=== PATIENT | female | born 1975 | race Caucasian/White ===

== ENCOUNTER 2025-02-25 07:37 | Inpatient (IN) | payer OTHER ==
[2025-02-25] VITALS (17 sets, daily range): BP systolic 104–146; BP diastolic 56–101; PULSE 91–101; RESP 14–19; TEMP 97.5–98.1; O2SAT 90–100
[~2025-02-25] VITALS: Ht 167.6 cm; Wt 124.7 kg
[2025-02-25] MEDS ORDERED: nitroGLYCERIN-Tridil 50MG/D5W 250 ML IV SCH (07:45)
--- NOTE | 2025-02-25 07:56 | ELECTROCARDIOGRAPH REPORT ---
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
[2025-02-25] MEDS: nitroGLYCERIN-Tridil 50MG/D5W 250 ML IV SCH (08:05)
[2025-02-25] MEDS: heparin 25,000 UNIT/250ml bag 250 ML IV PRN (08:08)
--- NOTE | 2025-02-25 08:19 | Physician Documentation ---
History of Present Illness ~ Chief Complaint: Chest Pain Stated Complaint: NSTEMI Time Seen by MD: 08:09 Source: patient (2), RN/MD (Transfer paperwork), EMS HPI Patient was transferred to our facility from [facility] for evaluation and management of what was deemed to be an NSTEMI at that facility. She arrives with a heparin and nitroglycerin drip. Patient reports that since Easter time she has had some pain in the low chest and upper epigastrium, which initially only bothers her when she ate, but over the last week has been rather constant. The pain has become significant enough that she has difficulty breath ing, but reports that the pain is still worse if she attempts to take any p.o.. The pain is described as being substernal and heavy/fall/pressure, moderate in intensity and radiating to her left shoulder and back. She denies any nausea, vomiting, or diaphoresis. She carries a recent diagnosis of CHF and has been out of Lasix. Patient was seen at [facility] where she was given aspirin, Pepcid, Lasix, heparin, DuoNeb, Solu-Medrol, and a nitroglycerin drip. She was found to have pulmonary edema on chest x-ray, EKG without acute ST changes. CT abdomen and pelvis was performed showing moderate right effusion and bibasilar atelectasis, no acute intra-abdominal pathology. She was given a GI cocktail which did not help her epigastric pain, but she was feeling much improved after nitroglycerin. Patient was transferred here for further care as they have no cardiology cap ability at that facility. Labs from outside facility: WBC 6.9, hemoglobin 13.5, platelets 245 Chemistry panel showing chloride of 97, CO2 33, glucose 324, albumin 2.7, otherwise normal. Lipase normal at 17. Troponin 253 protime 14.6 proBNP 1262. Medication Reconciliation Allergies: Coded Allergies: No Known Allergies (Unverified , 02/25/25) Past Medical History Past Medical History: Congestive Heart Failure, COPD, Diabetes Smoking Status: Current every day smoker (None for the last week) Alcohol Use: None Drug Use: none Review of Systems All Other Systems at this time: Reviewed and Negative Physical Exam Vital Signs: Temperature: 97.7, Source: Oral, Heart Rate: 101, Respiratory Rate: 20, BP: 170/120, Pulse Oximetry: 94, Weight: 124.700 Oxygen Flow Rate: 4.0 Physical Exam General: Pt is awake, alert, oriented x4 in no acute distress and well appearing. Head: Normocephalic and atraumatic. Eyes: Conjunctiva normal. ENT: Mucous membranes moist. Neck: Supple. Chest: Clear to auscultation bilaterally, without rales, rhonchi, or wheezes. There is no accessory muscle use or retractions. Cardiac: Regular rate and rhythm without murmurs, gallops or rubs. Palpation of the chest wall reproduces her pain Abd: Soft, nondistended, mildly tender in the epigastrium: with normoactive bowel sounds. No guarding or rebound. Extremities: Within normal limits without cyanosis, clubbing, or edema. Skin: [place], warm and dry with no significant rash appreciated. Neuro: Cranial nerves II-XII grossly intact. The gait is not tested Progress Results/Orders Results/Orders Orders - TYRELL LICONA MD Cbc/Diff (02/26/25 03:00) Cbc/Diff (02/27/25 03:00) Cbc/Diff (02/28/25 03:00) Cbc/Diff (03/01/25 03:00) Cbc/Diff (03/02/25 03:00) Nitroglycerin-Tridil 50mg/D5w (Tridil (N (02/25/25 07:54) Page Hospitalist (02/25/25 08:23) Fill Out Med Reconciliation (02/25/25 08:23) Completed Orders - TYRELL LICONA MD Nitroglycerin-Tridil 50mg/D5w (Tridil (N (02/25/25 07:45) Heparin Drip Acs*h-To-Dose* (Heparin D (02/25/25 07:45) Pt Inr (02/25/25 07:53) PTT (02/25/25 07:53) Cbc/Diff (02/25/25 07:53) No Initial Heparin Drip Bolus (No Initia (02/25/25 07:55) Electrocardiogram (02/25/25 ) Cardiac Ptt (02/25/25 07:55) Troponin (Single) (02/25/25 07:55) Message To Nursing (02/25/25 08:05) Medications Received in ER Medications (Trade) Dose Ordered Sig/Nadya Route PRN Reason Start Time Stop Time Status Last Admin Dose Admin Heparin Sodium/ Dextrose 250 ml @ 12 mls/hr [id number] PRN IV TO MAINTAIN PTT WITHIN RANGE 02/25/25 07:55 02/25/25 08:08 10 MLS/HR (heparin 10,000 unit/ml 1ml inj) bolus for correct... PRN PRN IV per protocol-CARDIAC 02/25/25 07:55 02/25/25 09:14 4,000 UNITS Nitroglycerin/ Dextrose 250 ml @ 3 mls/hr Q48H IV 02/25/25 07:54 02/25/25 08:05 3 MLS/HR Vital Signs 02/25/25 02/25/25 02/25/25 07:41 08:05 08:08 Temp 97.7 Pulse 101 Resp 20 24 B/P (MAP) 168/111 170/120 Pulse Ox 94 O2 Flow Rate 4.0 Laboratory Tests Test 02/25/25 08:17 White Blood Count 6.0 Red Blood Count 5.46 Hemoglobin 13.8 Hematocrit 42.7 Mean Corpuscular Volume 78.1 Mean Corpuscular Hemoglobin 25.2 L Mean Corpuscular Hemoglobin Concent 32.3 L Red Cell Distribution Width 16.3 H Platelet Count 241 Mean Platelet Volume 7.9 Neutrophils (%) (Auto) 85.3 H Lymphocytes (%) (Auto) 11.5 L Monocytes (%) (Auto) 2.7 Eosinophils (%) (Auto) 0.2 Basophils (%) (Auto) 0.3 Neutrophils # (Auto) 5.1 Lymphocytes # (Auto) 0.7 L Monocytes # (Auto) 0.2 Eosinophils # (Auto) 0.0 Basophils # (Auto) 0.0 CBC Comment Prothrombin Time 12.1 H INR International Normalized Ratio 1.2 Activated Partial Thromboplast Time 34 H APTT (Heparin Protocol) 34 L Coagulation Comments Troponin I High Sensitivity 271 *H EKG/XRAY/CT/US/VASC/MRI EKG : Intepreting Monitor?: No EKG Rate: 99 EKG: abnormal Q waves (Anterior leads) EKG Blocks: none Consults/PCP Consults/PCP : Time Call Requested: 08:23 Consult Reason/Comments: Hospitalist Additional Comment [id number] Case d/w Dr. De La Paz, who will kindly admit patient for further workup Medical Decision Making Additional Information Patient presenting with chest pain and shortness of breath, history of CHF and COPD. Found to have elevated troponin in the setting of a nondiagnostic EKG, consistent with NSTEMI and transferred here for further care. Patient's EKG not showing any STEMI at this time. There may be some element of a GI component as well. Patient will be admitted to the hospitalist service for further evaluation and management. Departure Time of Disposition: 08:22 Admitted to Inpatient Unit: yes, to hospitalist Impression: Primary Impression: Chest pain Condition: Fair Referrals: NO PRIMARY CARE PROVIDER (PCP) Education Educated: Patient Educated regarding: diagnosis, treatment Signature Scribe Signature: Attestation: TYRELL LICONA MD Feb 25, 2025 08:19
[2025-02-25] MEDS: HEPARIN DRIP INITAL BOLUS --- DO NOT GIVE/ORDER MC ONE (08:20)
[2025-02-25] MEDS: HEPARIN DRIP-CARDIAC**PHARMACIST-TO-DOSE IV ONE (08:20)
[2025-02-25] MEDS: MESSAGE TO NURSING IV ONE ×2 (08:20→09:38)
[2025-02-25 08:30] LABS: MEAN PLATELET VOLUME 7.9 FL (7.4-10.4); RED CELL DISTRIBUTION WIDTH 16.3 % (11.5-14.5)
[2025-02-25 08:41] LABS: APTT 34 SECONDS (22-32); INR 1.2 INR
[2025-02-25] MEDS ORDERED: potassium Cl 40MEQ/1/2NS 520ml 520 ML IV PRN (08:45)
[2025-02-25] MEDS ORDERED: potassium Cl 20 mEq SR tablet PO PRN ×2 (08:45)
[2025-02-25] MEDS ORDERED: magnesium sulf-water 4G/100mL 100 ML IV PRN (08:45)
[2025-02-25] MEDS ORDERED: magnesium sulf-water 2g/50mL 50 ML IV PRN (08:45)
[2025-02-25] MEDS ORDERED: ondansetron/PF 4mg/2ml inj IV PRN (08:45)
[2025-02-25] MEDS ORDERED: magnesium Cl slow-release 64mg tablet PO PRN (08:45)
[2025-02-25] MEDS ORDERED: HYDROcodone/acetaminophen 5mg/325mg tablet PO PRN (08:45)
[2025-02-25] MEDS ORDERED: HYDROcodone/acetaminophen 10/325mg tab PO PRN (08:45)
[2025-02-25] MEDS ORDERED: heparin 25,000 UNIT/250ml bag 250 ML IV PRN (08:50)
[2025-02-25] MEDS ORDERED: heparin 10,000 units/1 ML INJ IV PRN (08:50)
[2025-02-25] MEDS: heparin 10,000 units/1 ML INJ IV PRN (09:14)
[2025-02-25] MEDS: pantoprazole 40mg Tablet.DR PO SCH (09:16)
[2025-02-25 10:15] LABS: URINE AMPHETAMINE SCREEN POSITIVE (Neg); URINE BARBITUATE SCREEN NEGATIVE (Neg); URINE BENZODIAZEPINES SCREEN NEGATIVE (Neg); URINE COCAINE SCREEN NEGATIVE (Neg); URINE METHADONE SCREEN NEGATIVE (Neg); URINE OPIATE SCREEN POSITIVE (Neg); URINE PHENCYCLIDINE SCREEN NEGATIVE (Neg)
[2025-02-25] MEDS ORDERED: metoprolol tartrate 1mg/ml inj IV PRN (10:40)
[2025-02-25] MEDS ORDERED: aminophylline 250mg/10ml inj. IV PRN (10:40)
[2025-02-25] MEDS ORDERED: POTA-188 PO (10:52)
[2025-02-25] MEDS ORDERED: EMPA10TA PO (10:52)
[2025-02-25] MEDS ORDERED: IPRA4AER INH (10:52)
[2025-02-25] MEDS ORDERED: FURO-150 PO (10:52)
[2025-02-25] MEDS ORDERED: ALB0.5UD IH (10:53)
[2025-02-25] MEDS: nicotine 14mg patch - 24hr TD SCH (11:30)
--- NOTE | 2025-02-25 11:56 | HISTORY AND PHYSICAL-Residence ---
History & Physical Providers to CC Resident Creating Document: DIEUDONNE ASHRAF RES ~ History of Present Illness Reason for Admit\Complaint: Chest pain History of Present Illness This is a 49-year-old female patient with morbid obesity, diabetes, CHF, COPD, admitted for NSTEMI. 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 The patient's pain is located in the precordial region without radiation, described as a pressure sensation, present even at rest and worsening with movement, associated with shortness of breath. Patient also reports symptoms of dyspepsia, without fever, nausea, vomiting or diarrhea. Patient was first seen at [facility] where she was given aspirin, Pepcid, Lasix, heparin, DuoNeb, Solu- Medrol, and a nitroglycerin drip. She was found to have pulmonary edema on chest x-ray, EKG without acute ST changes. CT abdomen and pelvis was performed showing moderate right effusion and bibasilar atelectasis, no acute intra- abdominal pathology. Labs from outside facility: WBC 6.9, hemoglobin 13.5, platelets 245 Chemistry panel showing chloride of 97, CO2 33, glucose 324, albumin 2.7, otherwise normal. Lipase normal at 17. Troponin 253 protime 14.6 proBNP 1262. Allergies: Coded Allergies: No Known Allergies (Unverified , 02/25/25) Home Medications Home Medications Active Reported Proventil Nebs* (Albuterol) 2.5 Mg/0.5 Ml Vial.neb 2.5 Mg IH Q6H PRN Combivent Respimat Inhal Seaman (Albuterol/Ipratropium) 20 Mcg-100 Mcg/Actuation Aer.w.adap 1 Puffs INH Q6H Klor-Con* (Potassium Chloride) 10 Meq Tablet.sa 4 Tab PO DAILY 30 Days Lasix (Furosemide) 20 Mg Tablet 1 Tab PO DAILY 30 Days Jardiance (Empagliflozin) 10 Mg Tablet 4 Tab PO DAILY 30 Days Past Medical History Past Medical History 1. Morbid obesity 2. Diabetes 3. Congestive heart failure 4. COPD Past Surgical History Surgical History Comment Hysterectomy 20 years ago Cholecystectomy 15 years ago Past Social History Smoking: Less than 1 pack/day (Patient is recently smoking 2 cigarettes a day, but used to smoke 1 pack a day for 35 years) Alcohol Use: Occasionally Drug Use: None, Marijuana (Patient relapsed yesterday but states being clear for 20 years), Methamphetamine (Patient relapsed yesterday but states being clear for 20 years) Lives with: Spouse Lives In: Home Occupation: employed, child, other ROS All Other Systems: Reviewed and Negative Constitutional: Reports: no symptoms reported Eyes: Reports: no symptoms reported ENT: Reports: no symptoms reported Respiratory: Reports: no symptoms reported, shortness of breath Cardiovascular: Reports: chest pain Gastrointestinal: Reports: abdominal pain Genitourinary: Reports: no symptoms reported Female Genitalia: Reports: no reported symptoms Neurological: Reports: no symptoms reported Musculoskeletal: Reports: no symptoms reported Integumentary: Reports: no symptoms reported Allergic/Immunologic: Reports: no symptoms reported Hematologic/Lymphatic: Reports: no symptoms reported Endocrine: Reports: no symptoms reported Psychiatric: Reports: no symptoms reported Unable to obtain: altered mental status Exam Vitals: Vital Signs Date Time Temp Pulse Resp B/P (MAP) Pulse Ox O2 Delivery O2 Flow Rate FiO2 02/25/25 10:23 98 02/25/25 10:05 98.0 15 146/95 (112) 95 Nasal Cannula 4.0 General: General: The patient is well developed, well nourished, nontoxic appearing and is in no acute distress Head: Normocephalic and atraumatic. Eyes: Conjunctiva normal. ENT: Mucous membranes moist. Neck: Supple. Chest: Clear to auscultation bilaterally, without rales, rhonchi, or wheezes. There is no accessory muscle use or retractions. Cardiac: Rate regular and rhythmic. S1, S2. No murmurs. Palpation of the chest wall was normal. Abd: Soft, mildly distended, mildly tender in the epigastrium: with normoactive bowel sounds. No guarding or rebound. Extremities: Within normal limits without cyanosis, clubbing, or edema. Skin: [place], warm and dry with no significant rash appreciated. Neuro: Cranial nerves II-XII grossly intact. The gait is not tested Diagnostic Data Last Recorded Lab Results: 02/25/25 0817 Diagnostic Data: Laboratory Tests Test 02/25/25 08:17 Prothrombin Time 12.1 SECONDS (9.0-12.0) H INR International Normalized Ratio 1.2 INR Activated Partial Thromboplast Time 34 SECONDS (22-32) H APTT (Heparin Protocol) 34 SECONDS (45-60) L Coagulation Comments Laboratory Tests Test 02/25/25 08:17 02/25/25 09:23 White Blood Count 6.0 X10'3 Red Blood Count 5.46 X10'6 Hemoglobin 13.8 g/dl Hematocrit 42.7 % Mean Corpuscular Volume 78.1 FL Mean Corpuscular Hemoglobin 25.2 PG Mean Corpuscular Hemoglobin Concent 32.3 g/dL Red Cell Distribution Width 16.3 % Platelet Count 241 X10'3 Mean Platelet Volume 7.9 FL Neutrophils (%) (Auto) 85.3 % Lymphocytes (%) (Auto) 11.5 % Monocytes (%) (Auto) 2.7 % Eosinophils (%) (Auto) 0.2 % Basophils (%) (Auto) 0.3 % Neutrophils # (Auto) 5.1 X10'3 Lymphocytes # (Auto) 0.7 X10'3 Monocytes # (Auto) 0.2 X10'3 Eosinophils # (Auto) 0.0 X10'3 Basophils # (Auto) 0.0 X10'3 CBC Comment Prothrombin Time 12.1 SECONDS INR International Normalized Ratio 1.2 INR Activated Partial Thromboplast Time 34 SECONDS APTT (Heparin Protocol) 34 SECONDS Coagulation Comments Troponin I High Sensitivity 271 ng/L Urine Opiates Screen Positive Urine Methadone Screen Negative Urine Fentanyl Screen Positive Urine Barbiturates Screen Negative Urine Phencyclidine Screen Negative Urine Amphetamines Screen Positive Urine Benzodiazepines Screen Negative Urine Cocaine Screen Negative Urine Cannabinoids Screen Drug Screen Comment Counseling Services Smoking & Tobacco Cessation: 3-10 Minutes (Patient was instructed to abstain from tobacco use) Advance Care Planning Advanced Care plannin - 30 Minutes Problems: (1) Chest pain Status: Acute Assessment & Plan: NSTEMI (KHANG 2 points; VENESSA 62 points) Cardiology consulted today We we will continue heparin and nitroglycerin drip We will start patient on GDMT Ordered Lexiscan We will monitor for worsening of the symptoms Dr Webb evaluated the patient today and he feels patient has chronic congestive heart failure, meth induced cardiomyopathy. Patient is started on GDMT today . Cardiology consult note reviewed and we will follow the recommendation. Lexiscan in a.m. we will keep patient NPO after midnight Congestive heart failure Patient was recently started on Jardiance and Lasix Ordered echocardiogram Diabetes Waiting A1c Management as per protocol Drug abuse Urine screen positive for fentanyl and amphetamine food services director and substance use navigator consulted Date of Service: Feb 25, 2025 Billing Provider: MAXIMO FISH MD Common Visit Codes: 43492-[id number] INP/OBS CARE (HIGH) Secondary Visit Codes: [id number] CARE PLAN 30 MINUTES Problem Qualifiers (1) Chest pain: Chest pain type: chest pain due to myocardial ischemia DIEUDONNE ASHRAF, RES Feb 25, 2025 11:56 MAXIMO FISH MD Feb 25, 2025 13:28
[2025-02-25] MEDS ORDERED: albuterol 2.5 MG/3 ML nebule NEB PRN (12:30)
--- NOTE | 2025-02-25 12:51 | CONSULTATION REPORT ---
Cardiac Consultation Report Providers to CC ~ Subjective Subjective Cardiology consultation: Abnormal cardiac enzymes shortness of breath. [age] old female who is medically nonadherent and chronically ill went to the emergency room at [facility] it was treated for heart failure and it troponin rise of 0.238 was noted. She was placed on heparin and nitroglycerin and transferred here. With each meal for the past month she has been having epigastric pain and left shoulder pain. She is out of breath with room activities. However no associated angina pectoris with activity. GI cocktail made her stomach swell according to her history and was not helpful. She feels improved with diuresis. He is afraid to eat because every time she eats it makes her stomach swell in her epigastrium hurts. Unfortunately she admits to using methamphetamines two days ago used to be a chronic user and she had run out of her furosemide. She is supposed to be taking Proventil Combivent Klor-Con Lasix and Jardiance as an outpatient. She has been waiting for a cardiology consult in [place]. She did have a CAT scan of the abdomen at [facility] that showed past hysterectomy and cholecystectomy and an enlarged liver. Pleural effusions were noted abdominal wall edema was noted. For the past month and a half she has been on oxygen p.r.n. use at home. Objective Vitals Vital Signs Date Time Temp Pulse Resp B/P (MAP) Pulse Ox O2 Delivery O2 Flow Rate FiO2 02/25/25 10:23 98 02/25/25 10:05 98.0 15 146/95 (112) 95 Nasal Cannula 4.0 Lab Results: 02/25/25 0817 Objective Carotid no bruit chest diminished breath sounds no wheeze no rales heart no murmur heard no S3 gallop no rub PMI not palpable abdomen obese. BMI is 44. Bilateral edema with chronic venous stasis skin changes palpable foot pulses. Asymptomatic pleasant cooperative. Coagulation Studies Laboratory Tests Test 02/25/25 08:17 Prothrombin Time 12.1 SECONDS (9.0-12.0) H INR International Normalized Ratio 1.2 INR Activated Partial Thromboplast Time 34 SECONDS (22-32) H APTT (Heparin Protocol) 34 SECONDS (45-60) L Coagulation Comments Other Results Electrocardiogram loss of R-wave progression V1 through V3 nonspecific ST-T changes normal sinus rhythm. Echocardiography; visual ejection fraction 30-35% right ventricular enlargement with right ventricular hypokinesis. Intermittent mild MR. Poor quality study. Echo cardiographic earth science laboratory technician over estimates ejection fraction. Problem\Assessment\Plan Additional Plan Impression: 1. Chronic congestive cardiomyopathy. Exacerbated by methamphetamine use. 2. Morbid obesity. 3. Patient does not have non ST elevated HI she has methamphetamine use chronic congestive heart failure with mild troponin rise. 4. Blood pressure not controlled initially 160/110. 5. Epigastric severe abdominal pain with radiation to her left shoulder post each meal. Abdominal pain relief by defecation defecation is of pellets. Cat scan of abdomen unremarkable except for hepatomegaly. Recommendation 1. Control blood pressure patient is started on Coreg lisinopril. Continue furosemide potassium add a potassium-sparing diuretic as needed. 2. Discontinue intravenous nitroglycerin when blood pressure relatively well controlled. Discontinue heparin at any time. 3. Lexiscan to evaluate for reversible ischemia. 4. Patient's main complaint is actually epigastric pain radiating into her left shoulder with each meal etiology indeterminate. Lipase normal in [facility] amylase ordered for here. MAC ADAMS MD Feb 25, 2025 12:50
[2025-02-25] MEDS: regadenoson 0.4mg/5ml syringe IV PRN (14:01)
--- NOTE | 2025-02-25 15:40 | RADIOLOGY REPORT ---
EXAM: NM NM CHRISTIAN SCAN History: NSTEMI Comparison Study: None TECHNIQUE: Resting myocardial perfusion imaging was performed approximately 30 minutes following the injection of 8.3 mCi of Tc-99m sestamibi. Peak pharmacologic stress, the patient was injected with 34 .14 mCi of Tc-99m sestamibi. Gated post stress images were acquired in the supine and prone positions approximately 30 minutes after stress and left ventricular ejection fraction (LVEF) was calculated. Findings: The overall quality of the study is adequate. The left ventricular cavity is noted to be enlarged. There is no evidence of abnormal lung activity. Additionally, the right ventricle appears normal. Myocardial perfusion images demonstrate large size, severe intensity perfusion defects in the mid to distal anterior and inferior jackson which are fixed. Gated imaging reveals global hypokinetic wall motion with a calculated decreased LVEF of 26 % with en d-diastolic volume of 181 mL at stress. Impression: 1. Large size, severe intensity perfusion defects in the mid to distal anterior and inferior jackson wh ich are fixed. Favored to reflect infarcts. No evidence of ischemia. 2. Overall gated left ventricular systolic function was globally hypokinetic with calculated decrease d LVEF of 26 % at stress. 3. Enlarged left ventricle.
[2025-02-25] MEDS: metoprolol succinate 25mg (24-HOUR) SR. Tablet PO SCH (15:54)
[2025-02-25] MEDS: EMPAGLIFLOZIN 10 MG TABLET PO SCH (15:54)
[2025-02-25] MEDS: ipratropium/albuterol 3ml nebule IH SCH (16:43)
[2025-02-25] MEDS ORDERED: glucagon, human recombinant 1mg kit SUBCUT PRN (17:40)
[2025-02-25] MEDS ORDERED: DEXTROSE 15 GM of carb/4 tabs (each vial/BOTTLE has 4 tablets) PO PRN ×2 (17:40)
[2025-02-25] MEDS ORDERED: dextrose 50%-water 50ml dispensing syringe IV PRN ×2 (17:40)
--- NOTE | 2025-02-25 18:02 | RADIOLOGY REPORT ---
CHEST RADIOGRAPH Indication: CHEST PAIN Technique: Single frontal view of the chest was obtained COMPARISON: None FINDINGS: Lines and Tubes: None Lungs: Increased interstitial prominence Pleura: No effusion. No pneumothorax. Cardiomediastinal contours: Unremarkable Bones: Unremarkable IMPRESSION: Viral pneumonia or pulmonary vascular congestion
[2025-02-25 18:13] LABS: CHOL/HDL RATIO 3.6 (0.00-4.99); CREATININE 0.92 MG/DL (0.40-0.90); LDL CHOLESTEROL 92 MG/DL (50-100); TOTAL CARBON DIOXIDE 31.9 MMOL/L (24-32); eCRCL 70 ML/MIN; eGFR 65 ML/MIN
[2025-02-25] MEDS: carvedilol 6.25mg tablet PO SCH (21:20)
[2025-02-25] MEDS: insulin glargine (Lantus) pen - multi-dose SQ SCH (21:22)
[2025-02-25] MEDS: INSULIN LISPRO 100 UNIT/ML INSULN.PEN MULTI-DOSE SQ SCH (21:23)
[2025-02-26] VITALS (14 sets, daily range): BP systolic 101–146; BP diastolic 67–85; PULSE 76–96; RESP 13–19; TEMP 97.3–98.9; O2SAT 91–97
[2025-02-26 07:42] LABS: CREATININE 0.93 MG/DL (0.40-0.90); TOTAL CARBON DIOXIDE 31.4 MMOL/L (24-32); eCRCL 69 ML/MIN; eGFR 64 ML/MIN
[2025-02-26] MEDS: aspirin 81mg, enteric-coated 1 TAB TABLET.DR PO SCH (07:49)
[2025-02-26 10:49] LABS: MEAN PLATELET VOLUME 8.2 FL (7.4-10.4); RED CELL DISTRIBUTION WIDTH 16.6 % (11.5-14.5)
[2025-02-26 11:07] LABS: PRO BRAIN NATRIURETIC PEPTIDE 4352 PG/ML (0-125)
--- NOTE | 2025-02-26 12:12 | PROGRESS NOTE ---
Progress Note Cardiology Providers to CC ~ Subjective Subjective Cardiology follow up: Cardiomyopathy methamphetamine abuse. Congestive heart failure. Morbid obesity. Patient had a nuclear stress test today with large fixed anterior defect that maybe breast artifact due to her body habitus however a prior anterior wall VA can not be ruled out she has QS in leads V1 through V3. With diuresis she feels improved. Objective Result Diagram: 02/26/2562702/26/25627 Objective No carotid bruit diminished breath sounds at right base pleural effusion. Heart no murmur. Peripheral edema present still. Coagulation Studies Laboratory Tests Test 02/25/25 08:17 Prothrombin Time 12.1 SECONDS (9.0-12.0) H INR International Normalized Ratio 1.2 INR Activated Partial Thromboplast Time 34 SECONDS (22-32) H APTT (Heparin Protocol) 34 SECONDS (45-60) L Coagulation Comments Problem\Assessment\Plan Additional Plan Assessment: Findings consistent with cardiomyopathy severe chronic recurrent methamphetamine use. However athero sclerotic heart disease can not be entirely excluded. Considering there is no reversible ischemia it is not absolutely necessary to perform a heart catheterization. She could be continued on medical therapy only. Recommendation: Discussed with patient if she desires diagnostic heart catheterization or not or to be continued on medical therapy with follow up with her primary care she was going to be referred to [facility]. MAC ADASM MD Feb 26, 2025 12:12
--- NOTE | 2025-02-26 13:07 | CARDIOLOGY REPORT ---
APPROVED REPORT EXAM: Comprehensive 2D, Doppler, and color-flow Echocardiogram. 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 125.0 cm/s AoV VTI 18.9 cm AO Peak GR. 6.2 mmHg AO Mean GR. 3 mmHg LVOT VTI 20.53 cm LVOT Peak Blue. 114.0 cm/s HARJEET(VTI)/BSA 3.68 cm2/m2 HARJEET (VTI) 3.68 cm2 Mitral Valve MV Peak Gr. 7 mmHg MV PHT 64 ms MVA (PHT) 3.44 cm2 MV DEma420.3 cm/s LEFT VENTRICLE Increased LV size and wall thickness. Overall systolic function is moderately reduced. Multisegmental wall motion abnormalities. Abberant band visable in LV apex. There is moderate LV systolic dysfuncti on present. Overall estimated ejection fraction is about 40%. RIGHT VENTRICLE RV is normal size and function. ATRIA The left atrium size is normal. AORTIC VALVE Trileaflet AV appears normal without stenosis. No insufficiency. MITRAL VALVE Mild MV annular calcification without stenosis. Trace regurgitation. TRICUSPID VALVE TV appears structurally normal with trace regurgitation. PULMONIC VALVE Pulmonic valve is not well visualized. GREAT VESSELS The aortic root is normal in size. IVC is dilated and collapses greater than 50% with inspiration. PERICARDIUM Normal pericardium. No effusion. Other Information Study Quality: Adequate but diffcult due to body habitus. Conclusion There is moderate LV systolic dysfunction present. Overall estimated ejection fraction is about 35 to 40%. Increased LV size and wall thickness. Overall systolic function is moderate to severe reduced. Multis egmental wall motion abnormalities. Abberant band visable in LV apex. RV is normal size and function. Trileaflet AV appears normal without stenosis. No insufficiency. Mild MV annular calcification without stenosis. Trace regurgitation. TV appears structurally normal with trace regurgitation. Normal pericardium. No effusion.
--- NOTE | 2025-02-26 15:07 | PROGRESS NOTE- Residence ---
Progress Note - Resident Providers to CC Resident Creating Document: DIEUDONNE ASHRAF RES ~ Antibiotic Timeout Antibiotic Ordered?: No Subjective Patient is seen and examined at bedside. Patient reports complete resolution of the chest pain, also denies shortness of breath. No overnight events reported. Patient is tolerating well medical therapy. Objective Vital Signs Date Time Temp Pulse Resp B/P (MAP) Pulse Ox O2 Delivery O2 Flow Rate FiO2 02/26/25 11:00 97.9 78 14 101/67 (78) 93 Nasal Cannula 2.0 02/26/25 08:04 28 Result Diagram: 02/26/2562702/26/25627 General: The patient is well developed, well nourished, nontoxic appearing and is in no acute distress Head: Normocephalic and atraumatic. Eyes: Conjunctiva normal. ENT: Mucous membranes moist. Neck: Supple. Chest: Clear to auscultation bilaterally, without rales, rhonchi, or wheezes. There is no accessory muscle use or retractions. Cardiac: Rate regular and rhythmic. S1, S2. No murmurs. Palpation of the chest wall was normal. Abd: Soft, nondistended, nontender, with normoactive bowel sounds. No guarding or rebound. Extremities: 2+ bilateral lower extremity pitting edema. No signs of cyanosis or clubbing. Skin: [place], warm and dry with no significant rash appreciated. Neuro: Cranial nerves II-XII grossly intact. The gait is not tested Coagulation Studies Laboratory Tests Test 02/25/25 08:17 Prothrombin Time 12.1 SECONDS (9.0-12.0) H INR International Normalized Ratio 1.2 INR Activated Partial Thromboplast Time 34 SECONDS (22-32) H APTT (Heparin Protocol) 34 SECONDS (45-60) L Coagulation Comments Assessment Assessment This is a 49-year-old female patient with morbid obesity, diabetes, CHF, COPD, admitted for chest pain. 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 Patient nuclear test confirmed chronic ischemia and echocardiogram demonstrated heart failure with reduced ejection fraction. Patient was started on aspirin, atorvastatin, lisinopril, carvedilol, spironolactone and jardiance. 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 Patient is started on GDMT today . Cardiology consult note reviewed and we will follow the recommendation. Kaley in a.m. we will keep patient NPO after midnight Troponin results: 253 - 271 - 222 02/26/25 Results Lexiscan: 1. Large size, severe intensity perfusion defects in the mid to distal anterior and inferior jackson which are fixed. Favored to reflect infarcts. No evidence of ischemia. 2. Overall gated left ventricular systolic function was globally hypokinetic with calculated decreased LVEF of 26 % at stress. 3. Enlarged left ventricle. Results echocardiogram: There is moderate LV systolic dysfunction present. Overall estimated ejection fraction is about 35 to 40%. Patient started on aspirin 81 mg daily, atorvastatin 40 mg daily, carvedilol 6.25 mg b.i.d., lisinopril 20 mg daily and spironolactone 25 mg daily Heart catheterization not indicated at this time Congestive heart failure with ejection fraction (35-40%) 02/25/25 Patient was recently started on Jardiance and Lasix Ordered echocardiogram 02/26/25 Continue Jardiance Lasix increased to 40 mg b.i.d. Pro BNP: 4352 Diabetes 02/25/25 Waiting A1c Management as per protocol 02/26/25 A1c 11.6 Started on insulin glargine 20 units at bedtime Drug abuse Urine screen positive for fentanyl and amphetamine real estate services administrator and substance use navigator consulted 02/26/25 Patient instructed to abstain from tobacco, alcohol and illegal drug use Code Status: Full code DVT prophylaxis: Patient ambulates Analgesia/sedation: Morphine/[place] Line/tube: PIV GI prophylaxis: Protonix Nutrition: Health diet + 75 g carb diet Prognosis: Guarded Disposition: Continue medical treatment. Anticipated discharge tomorrow. Date of Service: Feb 26, 2025 Billing Provider: FERNY GROVES MD Common Visit Codes: [id number] INP/OBS CARE(HIGH) DIEUDONNE ASHRAF, RES Feb 26, 2025 15:07 FERNY GROVES MD Feb 28, 2025 06:33
--- NOTE | 2025-02-26 19:49 | ELECTROCARDIOGRAPH REPORT ---
[facility] Test Date: 2025-02-26 Test Time: 19:47:40 Pat Name: RADHA YOUSIF Department: [facility] 3S Patient ID: [facility]-[id number] Room: [place] [address] B Gender: F Immigration Services Officer: : 1975 Requested By: ERIC BARRAZA Order Number: [id number] Reading MD: Dr. TUNDE Tracy Measurements Intervals [place] Rate: 81 P: 66 UT: 157 QRS: 73 QRSD: 101 T: 208 QT: 403 QTc: 468 Interpretive Statements Sinus rhythm Anteroseptal infarct, age indeterminate Electronically Signed On 02-27-2025 13:24:[address] TUNDE Tracy Please click the below link to view image of tracing.
[2025-02-27 02:00] VITALS: BP 113/70; PULSE 81; RESP 19; TEMP 98.1; O2SAT 91
[2025-02-27 06:46] VITALS: BP 134/92; PULSE 79; RESP 21; TEMP 97.7; O2SAT 97
[2025-02-27 07:00] LABS: CREATININE 0.86 MG/DL (0.40-0.90); TOTAL CARBON DIOXIDE 31.9 MMOL/L (24-32); eCRCL 75 ML/MIN; eGFR 70 ML/MIN
[2025-02-27 08:00] VITALS: RESP 18; O2SAT 97
[2025-02-27] MEDS ORDERED: ATOR20TA66 PO ×2 (09:46→15:44)
[2025-02-27] MEDS ORDERED: LISI20TA28 PO ×2 (09:46→15:44)
[2025-02-27] MEDS ORDERED: ASPI81TA52 PO (09:46)
[2025-02-27] MEDS ORDERED: CARV-50 PO ×2 (09:46→15:44)
[2025-02-27] MEDS ORDERED: SPIR25TA5 PO ×2 (09:46→15:44)
[2025-02-27] MEDS ORDERED: INSU300I10 SUBD (09:46)
[2025-02-27 11:21] VITALS: BP 134/79; PULSE 82; RESP 20; TEMP 98.3; O2SAT 95
--- NOTE | 2025-02-27 14:30 | DISCHARGE SUMMARY-Residence ---
Discharge Summary Providers to CC Resident Creating Document: DIEUDONNE ASHRAF RES ~ Discharge Summary Admission Diagnosis: NSTEMI , Chronic CHF , GERD Hospital Course DATE OF ADMISSION: 02/25/2025 DATE OF DISCHARGE: 02/27/2025 Discharge lab results: Hemoglobin 13.1 WBC 7.6 Platelet count 237 Hemoglobin A1c 11.7 Sodium 138 Potassium 2.8 BUN 22 Creatinine 0.86 Image results: Chest x-ray 02/25/2025: Viral pneumonia or pulmonary vascular congestion Echocardiogram 02/25/2025: There is moderate LV systolic dysfunction present. Overall estimated ejection fraction is about 35 to 40%. Increased LV size and wall thickness. Overall systolic function is moderate to severe reduced. Multisegmental wall motion abnormalities. Abberant band visable in LV apex. RV is normal size and function. Trileaflet AV appears normal without stenosis. No insufficiency. Mild MV annular calcification without stenosis. Trace regurgitation. TV appears structurally normal with trace regurgitation. Normal pericardium. No effusion. Lexiscan 02/25/2025: 1. Large size, severe intensity perfusion defects in the mid to distal anterior and inferior jackson which are fixed. Favored to reflect infarcts. No evidence of ischemia. 2. Overall gated left ventricular systolic function was globally hypokinetic with calculated decreased LVEF of 26 % at stress. 3. Enlarged left ventricle. Laboratory Tests Test 02/25/25 17:41 02/25/25 21:18 02/26/25 06:28 02/26/25 12:08 Sodium Level 133 MMOL/L 141 MMOL/L Potassium Level 4.1 MMOL/L 3.9 MMOL/L Chloride Level 97 MMOL/L 103 MMOL/L Carbon Dioxide Level 31.9 MMOL/L 31.4 MMOL/L Anion Gap 4 7 Blood Urea Nitrogen 10 MG/DL 15 MG/DL Creatinine 0.92 MG/DL 0.93 MG/DL Estimated GFR/1.73 m2 65 ML/MIN 64 ML/MIN BUN/Creatinine Ratio 10.9 16.1 Glucose Level 325 MG/DL 189 MG/DL Calcium Level 8.8 MG/DL 8.7 MG/DL Total Bilirubin 0.7 MG/DL 0.4 MG/DL Aspartate Amino Transf (AST/SGOT) 20 U/L 21 U/L Alanine Aminotransferase (ALT/SGPT) 19 U/L 18 U/L Alkaline Phosphatase 101 IU/L 86 IU/L Total Protein 7.2 G/DL 6.5 G/DL Albumin 2.7 G/DL 2.4 G/DL Globulin 4.5 G/DL 4.1 G/DL Albumin/Globulin Ratio 0.6 0.6 Triglycerides Level 65 MG/DL Cholesterol Level 153 MG/DL LDL Cholesterol 92 MG/DL HDL Cholesterol 42 MG/DL Cholesterol/HDL Ratio 3.6 Chemistry Comments Glucometer 304 mg/dl 202 mg/dl White Blood Count 7.6 X10'3 Red Blood Count 5.27 X10'6 Hemoglobin 13.1 g/dl Hematocrit 41.7 % Mean Corpuscular Volume 79.2 FL Mean Corpuscular Hemoglobin 24.9 PG Mean Corpuscular Hemoglobin Concent 31.5 g/dL Red Cell Distribution Width 16.6 % Platelet Count 237 X10'3 Mean Platelet Volume 8.2 FL Neutrophils (%) (Auto) 56.7 % Lymphocytes (%) (Auto) 32.0 % Monocytes (%) (Auto) 9.7 % Eosinophils (%) (Auto) 1.2 % Basophils (%) (Auto) 0.4 % Neutrophils # (Auto) 4.3 X10'3 Lymphocytes # (Auto) 2.4 X10'3 Monocytes # (Auto) 0.7 X10'3 Eosinophils # (Auto) 0.1 X10'3 Basophils # (Auto) 0.0 X10'3 CBC Comment Pro-B-Type Natriuretic Peptide 4352 PG/ML Test 02/26/25 16:50 02/26/25 22:06 02/27/25 06:18 Glucometer 192 mg/dl 198 mg/dl Sodium Level 138 MMOL/L Potassium Level 3.8 MMOL/L Chloride Level 100 MMOL/L Carbon Dioxide Level 31.9 MMOL/L Anion Gap 6 Blood Urea Nitrogen 22 MG/DL Creatinine 0.86 MG/DL Estimated GFR/1.73 m2 70 ML/MIN BUN/Creatinine Ratio 25.6 Glucose Level 140 MG/DL Calcium Level 8.8 MG/DL Total Bilirubin 0.4 MG/DL Aspartate Amino Transf (AST/SGOT) 22 U/L Alanine Aminotransferase (ALT/SGPT) 23 U/L Alkaline Phosphatase 96 IU/L Total Protein 6.9 G/DL Albumin 2.6 G/DL Globulin 4.3 G/DL Albumin/Globulin Ratio 0.6 Chemistry Comments Discharge Diagnosis\Comment: 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 Webb Complications: None Condition on DC: Stable New Medications: Aspirin (Aspirin EC) 81 Mg Tablet. 1 TAB PO DAILY for 30 Days, #30 TAB Atorvastatin Calcium (Atorvastatin Calcium) 20 Mg Tablet 40 MG PO DAILY for 30 Days, #30 TAB Carvedilol (Carvedilol) 12.5 Mg Tablet 1 TAB PO Q12H for 30 Days, #60 TAB 0 Refills Insulin Glargine,Hum.rec.anlog (Insulin Glargine Max Solostar) 300 Unit/Ml (3 Ml) Insuln.pen 25 UNITS SUBD Q24H for 30 Days, #1 Lisinopril (Lisinopril) 20 Mg Tablet 1 TAB PO DAILY for 30 Days, #30 TAB Spironolactone (Spironolactone) 25 Mg Tablet 25 MG PO DAILY for 30 Days, #30 TAB Continued Medications: Albuterol Sulfate Nebs* (Proventil Nebs*) 2.5 Mg/0.5 Ml Vial.neb 2.5 MG IH Q6H PRN for SOB or wheezing, EACH Empagliflozin (Jardiance) 10 Mg Tablet 4 TAB PO DAILY for 30 Days, #30 TAB 0 Refills Furosemide (Lasix) 20 Mg Tablet 1 TAB PO DAILY for 30 Days, #30 TAB 0 Refills Ipratropium/Albuterol Sulfate (Combivent Respimat Inhal [place]) 20 Mcg-100 Mcg/Actuation Aer.w.adap 1 PUFFS INH Q6H, #4 GM Potassium Chloride* (Klor-Con*) 10 Meq Tablet.sa 4 TAB PO DAILY for 30 Days, #30 TAB Discharge Summary: History of present illness Patient was transferred to our facility from [facility] for evaluation and management chest pain. 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 The patient's pain is located in the precordial region without radiation, described as a pressure sensation, present even at rest and worsening with movement, associated with shortness of breath. In addition, she has been having epigastric pain and left shoulder pain with each meal for the past month. She was found to have elevated troponin without any significant EKG change, was placed on heparin and nitroglycerin and transferred here. Hospital course This is a 49-year-old female patient with morbid obesity, diabetes, CHF, COPD, admitted for chest pain. Patient nuclear test confirmed large size, severe intensity perfusion defects in the mid to distal anterior and inferior jackson which are fixed, without evidence of acute ischemia. Echocardiogram demonstrated heart failure with reduced ejection fraction. She was evaluated by design studio consultant Dr. Webb that did not indicate cardiac catheterization at this moment, proceeding to medical therapy for the diagnosis of cardiomyopathy secondary to chronic methamphetamine use and heart failure with reduced ejection fraction. Patient was started on aspirin, atorvastatin, lisinopril, carvedilol, spironolactone, insulin glargine and jardiance. Patient tolerated well medical therapy without any side effects. Today the patient is asymptomatic, hemodynamically stable, ready to be discharged. Discharge physical exam General: The patient is well developed, well nourished, nontoxic appearing and is in no acute distress Head: Normocephalic and atraumatic. Eyes: Conjunctiva normal. ENT: Mucous membranes moist. Neck: Supple. Chest: Clear to auscultation bilaterally, without rales, rhonchi, or wheezes. There is no accessory muscle use or retractions. Cardiac: Rate regular and rhythmic. S1, S2. No murmurs. Palpation of the chest wall was normal. Abd: Soft, nondistended, nontender, with normoactive bowel sounds. No guarding or rebound. Extremities: 1+ bilateral lower extremity pitting edema. No signs of cyanosis or clubbing. Skin: [place], warm and dry with no significant rash appreciated. Neuro: Cranial nerves II-XII grossly intact. The gait is not tested Discharge medications -aspirin 81mg daily -lasix 20mg daily -lisinopril 20 mg daily -spironolactone 25 mg daily -carvedilol 12,5mg twice a day -atorvastatin 40mg at bedtime -insulin glardine 25UI at bedtime Discharge course Follow up with your primary care physician in 1 week Follow up with cardiology in 1 week Take the discharge medications as stated above Continue home medication Monitor your glucose levels Please be aware of the need to take care of your diabetes. Also be aware of symptoms of hypoglicemia. Eat healthy diet Monitor your A1c level with your PCP and adjust your medication as needed Call 911 or came back to the emergency department in case of chest pain, shortness of breath or any concern symptom *Problems/Diagnosis: (1) Chest pain Status: Resolved (2) Cardiomyopathy, secondary Status: Chronic (3) Heart failure with reduced ejection fraction (HFrEF, <= 40%) Status: Chronic (4) Methamphetamine use disorder, mild Status: Acute Total Time Spent on D/C: Up to 30 Minutes Counseling Services Smoking & Tobacco Cessation: 3-10 Minutes Date of Service: Feb 27, 2025 Billing Provider: FERNY GROVES MD Common Visit Codes: [id number] DISCH DAY >30min Problem Qualifiers (1) Chest pain: Chest pain type: chest pain due to myocardial ischemia DIEUDONNE ASHRAF, RES Feb 27, 2025 14:08 FERNY GROVES MD Feb 28, 2025 06:32
[2025-02-27] MEDS ORDERED: POTA10CA95 PO (15:44)
[2025-02-27] MEDS ORDERED: IPRA3AMP9 IH (15:44)
[2025-02-27] MEDS ORDERED: ASPI-1265 PO (15:44)
[2025-02-27] MEDS ORDERED: INSU300I12 SUBCUT (15:44)
[2025-02-27] MEDS ORDERED: FURO20TA4 PO (15:44)
[2025-02-27] MEDS ORDERED: ALBU2.5V7 NEB (15:44)
[2025-02-27] MEDS ORDERED: EMPA10TA PO (15:44)
[2025-02-28] MEDS ORDERED: FURO20TA4 PO (06:35)
== END 2025-02-27 11:44 | disposition home or self-care (01) | DRG 313 ==
LOC: ER 07:38 → ED HOLD 08:47 → PCU 3S 10:05
PROVIDERS: ADMIT Internal Medicine; ATTEND Internal Medicine
PROC: 4A02XM4 Measurement of Cardiac Total Activity, External Approach (ICD-10-PCS; principal; 2025-02-25)
PROC: 3E033HZ Introduction of Radioactive Substance into Peripheral Vein, Percutaneous Approach (ICD-10-PCS; 2025-02-25)
DX: R07.89 Other chest pain (principal); I42.7 Cardiomyopathy due to drug and external agent; I50.22 Chronic systolic (congestive) heart failure; E11.9 Type 2 diabetes mellitus without complications; J44.9 Chronic obstructive pulmonary disease, unspecified; F17.210 Nicotine dependence, cigarettes, uncomplicated; F15.10 Other stimulant abuse, uncomplicated; E66.01 Morbid (severe) obesity due to excess calories; Z90.710 Acquired absence of both cervix and uterus
CPT/HCPCS: 36415; 71045; 78452; 80053; 80061; 80305; 82150; 82948; 83036; 83880; 84484; 85025; 85610; 85730; 87081; 93005; 93017; 93306; 94640; 94760; 96372; 99285; A9500; G0378; J1644; J1815; J1938; J2270; J2785; J3490